=== PATIENT | male | born 1970 | race Caucasian/White ===

== ENCOUNTER 2019-09-28 09:20 | Emergency (ER) | payer BC ==
--- OUTSIDE RECORDS SUMMARY | 2019-09-28 10:39 | XMS REPORT | Continuity of Care Document ---
:1970 External Reference #:[id number] Author Name Chris Rendon MD Address [address], [address] [place] [address] Care Team Providers Name Role Phone Chris Rendon M.D. - Internal Care Team Information Medical Records Secretary [phone] Medicine Problems Active Problems Provider Date Disorder of rectum Onset: 06/08/2014 Social History Type Date Description Comments Sex Unknown Tobacco Use Start: Unknown Patient has never smoked Smoking Status Reviewed: 02/09/19 Patient has never smoked Exercise Type/Frequency Exercises sporadically Allergies, Adverse Reactions, Alerts Description No Known Drug Allergies Medications Active Medications SIG Qnty Indications Ordering Provider Date Citalopram Take 1 Tablet 90tabs Chris Rendon, 01/16/2010 Hydrobromide Daily MD 20mg Tablets Simvastatin Take 1 Tablet 90tabs Chris Rendon, 01/14/2010 20mg Tablets Daily Immunizations Description No Information Available Vital Signs Date Vital Result Comment 08/24/2019 3:52pm Height 70 inches 5'10" Weight 248.00 lb BMI (Body Mass Index) 35.6 kg/m2 BP Systolic 110 mmHg BP Diastolic 68 mmHg Heart Rate 72 /min Body Temperature 98.5 F Body Temperature 36.9 C 02/09/2019 4:06pm Height 70 inches 5'10" Weight 238.00 lb BMI (Body Mass Index) 34.1 kg/m2 BP Systolic 110 mmHg BP Diastolic 70 mmHg Heart Rate 69 /min Body Temperature 97.7 F Body Temperature 36.5 C O2 % BldC Oximetry 98 % Results Description No Information Available Procedures Description No Information Available Medical Devices Description No Information Available Encounters Description No Information Available Assessments Date Code Description Provider 08/24/2019 E78.00 Pure hypercholesterolemia, unspecified Chris Rendon MD 08/24/2019 F41.1 Generalized anxiety disorder Chris Rendon MD 08/24/2019 N40.0 Benign prostatic hyperplasia without lower Chris Rendon MD urinary tract symptoms Plan of Treatment 08/24/2019 - Chris Rendon MDE78.00 Pure hypercholesterolemia, unspecifiedFollow up:[facility] Fasting 6 months.F41.1 Generalized anxiety [id number] Benign prostatic hyperplasia without lower urinary tract symptoms Functional Status Description No Information Available Mental Status Description No Information Available Referrals Description No Information Available
[2019-09-28 10:50] VITALS: BP 111/66
--- NOTE | 2019-09-28 11:17 | UC ---
[facility] HPI - HPI Summary HPI Summary: Patient states he had a flu like illness last week that really knocked him out for about 4 days. Did not get checked out at that time. He seems to be taking longer to feeling better. Overall he feels better. Coughing less but still has a productive cough in the morning and feels fatigued. No fevers. No SOB and cough and URI symptoms have overall improved. N o N/V/D. good PO. No night sweats. His is worried he has pneumonia Meds; reviewed - History of Current Complaint Chief Complaint: UCRespiratory Stated Complaint: FLU LAST WK-STILL NOT FEELING WELL,COUGH Time Seen by Provider: 09/28/19 10:58 Pain Intensity: 1 - Allergy/Home Medications Allergies/Adverse Reactions: Allergies Allergy/AdvReac Type Severity Reaction Status Date / Time No Known Allergies Allergy Verified 09/28/19 10:41 PMH/Surg Hx/FS Hx/Imm Hx Previously Healthy: Yes Endocrine History: Dyslipidemia - Surgical History Surgical History: None - Social History Alcohol Use: Weekly Substance Use Type: None Smoking Status (MU): Never Smoked Tobacco - Immunization History Most Recent Tetanus Shot: over ten years ago Review of Systems All Other Systems Reviewed And Are Negative: Yes Constitutional: Positive: Fatigue Respiratory: Positive: Cough Physical Exam Triage Information Reviewed: Yes Appearance: Well-Appearing Vital Signs: Initial Vital Signs Temp 97.8 F 09/28/19 10:43 Pulse 67 09/28/19 10:43 Resp 16 09/28/19 10:43 BP 111/66 09/28/19 10:43 Pulse Ox 100 09/28/19 10:43 Vital Signs Reviewed: Yes ENT: Positive: Pharyngeal erythema Neck exam: Normal Neck: Positive: Supple, Nontender Respiratory: Positive: Lungs clear, Normal breath sounds, Decreased breath sounds Cardiovascular: Positive: RRR, No Murmur Course/Dx - Course Course Of Treatment: This is a 49 yr old with fatigue and cough Suspect post viral cough. No indication for CXR or antibiotics Plan Continue supportive care Recommend rest,fluids and cough suppressant as needed If symptoms persist or worsen, recommend follow up with PCP or return to urgent care - Diagnoses Provider Diagnosis: Post-viral cough syndrome Discharge ED - Sign-Out/Discharge Documenting (check all that apply): Patient Departure All imaging exams completed and their final reports reviewed: No Studies - Discharge Plan Condition: Good Disposition: HOME Patient Education Materials: Viral Syndrome (ED) Referrals: No Primary Care Phys,NOPCP [Primary Care Provider] - Additional Instructions: Continue supportive care Recommend rest,fluids and cough suppressant as needed If symptoms persist or worsen, recommend follow up with PCP or return to urgent care - Billing Disposition and Condition Condition: GOOD Disposition: Home
== END 2019-09-28 11:23 | disposition home or self-care (01) ==
LOC: UCCORT 09:20
DX: R05 Cough (principal); R53.83 Other fatigue
CPT/HCPCS: 99201; G0463